=== PATIENT | male | born 1990 | race Caucasian/White ===

== ENCOUNTER 2016-08-19 16:01 | Emergency (ER) | payer OTHER ==
[2016-08-19 16:06] VITALS: BP 126/63; PULSE 102; TEMP 99.8
--- NOTE | 2016-08-19 16:50 | EDPRACDOC ---
- General Information Chief Complaint: Flu-Like Symptoms Stated Complaint: VOMITING/CHERRY DEHYDRATED FEVER Time Seen by Provider: 08/19/16 16:45 Information Source: Patient Home Medications: Home Medications Amoxicillin Trihydrate [Amoxicillin] 500 mg PO TID #30 tab 08/19/16 Promethazine Dextromethorphan [Phenergan DM] 5 ml PO Q6 PRN #120 ml 08/19/16 Allergies/Adverse Reactions: Allergies Allergy/AdvReac Type Severity Reaction Status Date / Time sulfur [From Sulfur-8] Allergy See Verified 08/19/16 16:40 Comments sulfur dioxide Allergy See Verified 08/19/16 16:40 Comments - History of Present Illness Onset: FRIDAY HPI: PT COMPLAINS OF COUGH PROD OF YELLOW PHLEGM, CONGESTION, HEADACHE, MYALGIAS, POST-TUSSIVE VOMITING SINCE FRIDAY, STATES HAS HAD "FEVER" AT HOME WELL "CHILLS". Current Symptoms: Reports: Cough, Fever, Headache, Nasal Symptoms, Sore Throat, Myalgia, Nausea, Vomiting Shortness of Breath: None Cough: Reports: Productive, Yellow Rhinorrhea: Reports: Clear Ear Symptoms: Reports: Earache Fever Severity/Quality: Reports: subjective Oral Intake: Normal Urinary Output: Normal Relevant History of: None Associated Signs & Symptoms:: Reports: Cough, Earache, Fever, Headache, Nasal Symptoms, Sore Throat, Nausea, Vomiting, Myalgia ED Past Medical History - History Reviewed Yes Nurses notes reviewed and agree except as marked No Past Medical History: Yes Patient has no past medical history - Patient Medical History Psychological History: Denies: Depression - Social Medical History Smoking Status: Heavy tobacco smoker (5 or more cigarettes/day or daily pipe/ cigar) ETOH: Social EDM Review of Systems - Review of Systems Constitutional: Chills, Fever Eyes: negative: Blurred Vision, Double Vision Ears: Pain. negative: Drainage Throat: Pain Nose: Congestion, Discharge Respiratory: Cough. negative: Shortness of Breath, Wheezing Gastrointestinal: Nausea, Vomiting Neurological: Headache. negative: Dizziness, Numbness, Weakness Musculoskeletal: No Symptoms Reported Integumentary: No Symptoms Reported - Physical Exam Constitutional: Alert (Awake), No apparent distress Oriented to: Time, Person, Place Last recorded Vital Signs: Last Vital Signs Temp 99.8 F 08/19/16 16:01 Pulse 102 02/06/17 16:01 Resp 20 08/19/16 16:40 BP 126/63 08/19/16 16:01 Pulse Ox 98 08/19/16 16:01 Oxygen Pulse Oxygen Saturation 98 O2 Device Room Air Oxygen Flow Rate Fraction of Inspired Oxygen ( FIO2) - HEENT Head: Normal ( normocephalic) Eye Exam: Normal (PERRL, EOMI, Sclera white) Nose: No Symptoms Reported (septum midline) Neck: Normal (FROM, trachea at midline) HEENT Comment: TTP MAXILLARY AND FRONTAL SINUSES - Respiratory/Cardiovascular Respiratory: Normal - CTA (BBS clear to auscultation without adventitious sounds ) Cardiovascular: Normal (RRR without murmur, gallop or rub) - Integumentary Skin: Normal, Warm, Dry Lymphatics: Normal (no adenopathy) - Neurologic Memory Impaired: Normal Motor Function: Normal (Normal tone, Pulses 2+ No cyanosis or edema, FROM) Cranial Nerve: Normal (CN II-X11 intact sensation, strength 5/5) Cerebellar: Normal Mood Description: Normal Perception: Normal - Differential Diagnosis Otitis Media, Pneumonia, Sinusitis Decision Time to Discharge: 16:50 - Departure Disposition: Home Condition: Stable Final Diagnosis: Acute sinusitis Instructions: Sinusitis (ED) Education/Counseling Given To: Patient Education/Counseling Given Regarding: Diagnosis, Treatment, Prognosis, Follow Up Referrals: None,No Provider [Primary Care Provider] - One Week Prescriptions: New Amoxicillin Trihydrate [Amoxicillin] 500 mg PO TID #30 tab Promethazine Dextromethorphan [Phenergan DM] 5 ml PO Q6 PRN #120 ml PRN Reason: Cough Forms: Additional Instructions: Rest, drink plenty of fluids, use Tylenol every 4 hours and Motrin every 6 hours as needed for pain or fever, return to the ED for any worsening symptoms or concerns.
== END 2016-08-19 16:57 | disposition home or self-care (01) ==
LOC: ED 16:01 → EDMC 16:57
DX: J01.90 Acute sinusitis, unspecified (principal)
CPT/HCPCS: 99282